=== PATIENT | male | born 1940 | race Caucasian/White ===

== ENCOUNTER 2020-06-28 17:46 | Inpatient (IN) | payer MEDICARE ==
[2020-06-28] MEDS ORDERED: PROTONIX20 MG (18:02)
[2020-06-28] MEDS ORDERED: ZOLOFT25 MG (18:02)
[2020-06-28] MEDS ORDERED: TRIAMTERENE-HC1 EAC3 (18:03)
[2020-06-28] MEDS ORDERED: SYNTHROID112 MCG (18:03)
[2020-06-28] MEDS ORDERED: METOPROLOL TART25 MG (18:03)
[2020-06-28] MEDS ORDERED: PACERONE200 MG (18:03)
[2020-06-28] MEDS ORDERED: CILOSTAZOL100 MG (18:04)
[2020-06-28] MEDS ORDERED: OXYBUTYNIN CHLOR5 MG (18:04)
[2020-06-28] MEDS ORDERED: FLOMAX0.4 MG (18:04)
[2020-06-28] MEDS ORDERED: PRAVACHOL40 MG (18:04)
[2020-06-28] MEDS ORDERED: FLUTICASONE PRO16 GM (18:05)
[2020-06-28 18:48] LABS: HEMATOCRIT 52.3 % (42.0-54.0); HEMOGLOBIN 17.5 g/dL (13.5-17.5); LYMPHOCYTES 21.5 % (15-50); MCH 29.9 pg (26.0-34.0); MCHC 33.5 g/dL (31.0-37.0); MCV 89.4 fL (80.0-100.0); MEAN PLATELET VOLUME 9.4 fL (7.4-10.4); NEUTROPHILS 67.6 % (40-80); PLATELET COUNT 221 10x3/uL (130-400); RBC 5.85 10x6/uL (4.20-6.10); RDW 14.7 % (11.5-14.5); WBC 11.4 10x3/uL (4.8-10.8)
[2020-06-28 18:55] LABS: BILIRUBIN NEGATIVE (NEGATIVE); KETONE NEGATIVE (NEGATIVE); NITRITE NEGATIVE (NEGATIVE); UROBILINOGEN NORMAL (NORMAL)
[2020-06-28 18:56] LABS: BACTERIA FEW /hpf (NONE SEEN); WHITE CELLS - URINE 0-5 /hpf (0-5)
[2020-06-28 19:05] LABS: CALCIUM 9.1 mg/dL (8.5-10.1); CARBON DIOXIDE 27.6 mmol/L (21.0-32.0); CREATININE - SERUM 1.2 mg/dL (0.6-1.3); POTASSIUM - SERUM 3.6 mmol/L (3.5-5.1)
[2020-06-28 19:07] LABS: UDS - AMPHET NEGATIVE QUAL (NEGATIVE); UDS - BARB NEGATIVE QUAL (NEGATIVE); UDS - BENZO NEGATIVE QUAL (NEGATIVE); UDS - COCAINE NEGATIVE QUAL (NEGATIVE); UDS - OPIATE POSITIVE QUAL (NEGATIVE); UDS - PCP NEGATIVE QUAL (NEGATIVE); UDS - THC NEGATIVE QUAL (NEGATIVE)
[2020-06-28 19:19] LABS: ACETAMINOPHEN 0.4 ug/mL (10.0-30.0); ALBUMIN 4.2 g/dL (3.4-5.0); BILIRUBIN - TOTAL 1.14 mg/dL (0.2-1.3); MAGNESIUM - SERUM 2.3 mg/dL (1.8-2.4); THYROID STIMULATING HORMONE 4.19 uIU/mL (0.36-3.74)
[2020-06-28 20:04] VITALS: BP 137/68
--- NOTE | 2020-06-28 21:40 | NUR ---
PT ADMIT TO UNIT WITH DAUGHTER AND ER STAFF. HE RELATES THAT HE IS ANXIOUS ABOUT HIS SITUATION. HE STATES THAT HE KNOWS ITS WRONG TO HAVE THESE THOUGHTS OF SELF HARM AND WANTS TO GET HELP. HE IS REPORTED TO BE A&OX4, AMBULATES WITH A CANE BUT KNOWS HE WILL GET A WALKER. HE IS A FULL CODE. VERBALLY CONSENTED TO TREATMENT HERE HE IS HIS OWN POA. HE REPORTS THAT HE SPENT SOME TIME IN A ANOTHER HOSPITAL FROM FALLING AND HITTING HIS HEAD. ALL SCANS CAME BACK CLEAR. ER REPORTS THAT HIS URINE SHOWS A UTI AND ADMINISTERED MACROBID. SOME ITEMS SENT HOME WITH DAUGHTER. PT IS ANXIOUS. ADMINISTERED IM ATIVAN 0.5MG. WILL CONTINUE TO MONITOR.
[2020-06-28] MEDS ORDERED: ZOFRAN ODT4 MG/UDTAB PO (22:09)
[2020-06-28] MEDS ORDERED: OXYBUTYNIN CHLOR5 MG PO (22:10)
[2020-06-28] MEDS ORDERED: FLOMAX0.4 MG PO (22:12)
[2020-06-28] MEDS ORDERED: ZOLOFT25 MG PO (22:12)
[2020-06-28] MEDS ORDERED: PRAVACHOL20 MG PO (22:13)
[2020-06-28] MEDS ORDERED: PROTONIX40 MG PO (22:13)
[2020-06-28] MEDS ORDERED: CILOSTAZOL100 MG PO (22:14)
[2020-06-28] MEDS ORDERED: LOPRESSOR25 MG PO (22:14)
[2020-06-28] MEDS ORDERED: PACERONE200 MG PO (22:16)
[2020-06-28] MEDS ORDERED: SYNTHROID112 MCG PO (22:16)
[2020-06-28] MEDS ORDERED: TRIAMTERENE-HC1 EAC3 PO (22:17)
--- NOTE | 2020-06-28 22:38 | NUR ---
PT RESTING CALMLY IN BED WITH EYES CLOSED. NO DISTRESS NOTED. WILL CONTINUE TO MONITOR.
--- NOTE | 2020-06-29 00:01 | NUR ---
COVID-19 TEST PERFORMED. SENT TO LAB. INFORMED PT THAT HE IS TO REMAIN IN HIS ROOM ON DROPLET PRECAUTIONS UNTIL TEST RESULTS COME BACK NEGATIVE. PT VERBALIZED UNDERSTANDING. WILL CONTINUE TO MONITOR.
[2020-06-29 00:06] VITALS: BP 137/70; BMI 36.3
[2020-06-29 08:21] LABS: CHOL - HDL RATIO 3.5 ratio (2.3-4.9); LDL-HDL RATIO 1.9 ratio (1.5-3.5)
[2020-06-29 08:28] VITALS: Wt 111.9 kg
--- NOTE | 2020-06-29 08:54 | NUR ---
PT C/O OF H/A. PT FACE IS RED. VITAL SIGNS TAKEN WITH A B/P: 198/97. NOTIFIED DR. PIMENTEL OF PT'S CURRENT MEDS TO BE REVIEWED AND STARTED. NEW ORDER: START METOPROLOL 25 MG AND AMIODARON 200 MG NOW AND ADMINISTER TO PT. WILL CONT TO MONITOR.
[2020-06-29 09:39] VITALS: BP 198/97
--- NOTE | 2020-06-29 09:45 | NUR ---
NURSE RETOOK BLOOD PRESSURE AT THIS TIME AFTER ADMINISTION OF BLOOD PRESSURE MEDS. B/P: 143/69. WILL CONT TO MONITOR.
--- NOTE | 2020-06-29 11:46 | NUR ---
PT C/O OF HEADACHE.NURSE ADMINISTERED TYLENOL 650 MG ONE TIME DOSE PER DOCTORS ORDER. WILL REASSESS.
--- NOTE | 2020-06-29 12:45 | NUR ---
FAMILY MEMBER CALLED TO CHECK ON PT AT THIS TIME. PASSCODE GIVEN. NURSE GAVE AN UPDATE ON AWAITING PTS COVID RESULTS. SO PT IS IN HIS ROOM AT THIS TIME. SHE INQUIRED ABOUT "HOW HE WAS DOING OVER WELL. WAS HE DEPRESSED WITH BEING THERE?" NURSE STATED WELL HE HAS ONLY BEEN IN HIS ROOM SO UNTIL WE RECEIVE THE RESULTS AND THEN WE CAN DETERMINE IF HE IS DEPRESSED OUT OF HIS ROOM. HE IS RESTING DUE TO HAVING A HEADACHE. SHE STATED THAT HAS BEEN DOING ON FOR A WHILE. NURSE STATED THE DOCTOR WOULD BE NOTIFIED. SHE THANKED NURSE.
--- NOTE | 2020-06-29 15:10 | NUR ---
The patient is very anxious, he is red in the face and he says he is hot, Cherelle called and asked about him. She says she will try to call at phone call times. Offered him an ativan for anxiety and he said "Yes, I am just beside myself in here." He is in his room alone, awaiting the COVID test result. Ativan 0.5 mg po provided. Monitor his mood and behavior.
--- NOTE | 2020-06-29 15:40 | NUR ---
The patient says he is feeling less anxious.
--- NOTE | 2020-06-29 16:30 | NUR ---
The patient is in the day room now. His Covid test is negative. He is pleasant, but he is anxious. Dr. Villa explained to him that he will prescribe something for his nerves.
--- NOTE | 2020-06-29 18:10 | NUR ---
The patient drank his milk and ate his dessert then he got a phone call and now he is sitting in the dining room by the window. Explained to him that if he feels anxious he can request something to help him. He verbalized understanding.
[2020-06-29 20:07] VITALS: BP 129/65
--- NOTE | 2020-06-30 00:51 | NUR ---
B) Patientis alert and oriented to person, place and time and why he is here, anxious at times, I) Administered scheduled medications as ordered, monitored for safety R) Mediation compliant, bothered at times by loud confused patients at times, P) Continue plan of care.
[2020-06-30 07:14] LABS: RAPID PLASMA REAGIN Non Reactive (Non Reactive)
[2020-06-30 09:00] VITALS: BP 147/81
--- NOTE | 2020-06-30 10:56 | NUR ---
The patient is pleasant and he c/o a h/a, but his daughter told Pavan Deluca RN that it is something that has been going on for awhile. He received Tylenol this am. He ambulates, he said he needed his belt, but staff explained to him that he is not able to have a belt on this unit, but if he needs to wear his jeans he can have a zip tie. The patient verbalized understanding, but chose to wear shorts today. Provide prescribed meds, educate on the new medication Klonopin. The patient verbalized understanding. The patient is compliant with meds. Continue POC.
[2020-06-30 20:00] VITALS: BP 100/47
--- NOTE | 2020-06-30 20:20 | NUR ---
B) RECEIVED IN DAYROOM SITTING ING WHEELCHAIR SOCIALIZING WITH PEERS. ALERT AND ORIENTED TO TIME, PLACE AND SITUATION. DENIES SI OR ANY SELF-HARM. I) ADMINISTER SCHEDULED MEDICATIONS. CALM AND COOPERATIVE WITH CARE AND ASSESSMENT. REDIRECT AND REORIENT NEEDED. R) COMPLIANT WITH MEDICATIONS. REDIRECTS EASILY. P) WILL CONTINUE TO MONITOR.
[2020-07-01 09:18] VITALS: BP 156/79
--- NOTE | 2020-07-01 12:33 | NUR ---
PT SITTING IN CHAIR AGAINST WALL. PT IS PLESANT WITH STAFF AND PEERS. PT IS ALERT TO PERSON, PLACE AND TIME. SOME CONFUSION NOTED. PT CAN MAKE NEEDS KNOWN. DENIES SI. PT C/O OF H/A EARLIER IN SHIFT. MEDICATION GIVEN. PT CAN TRANSFER AND AMBULATE. PREFERS TO SIT IN W/C. PT IS MED COMPLIANT, VITALS AND ASSESSMENT. WILL CONT PLAN OF CARE.
--- NOTE | 2020-07-01 16:23 | NUR ---
PT DAUGHTER BROUGHT CLOTHES. WILL INVENTORY AND WASH. DAUGHTER INQUIRED ABOUT HOW HE WAS DOING. NURSE WENT OVER PTS MEDS INCLUDING ANTIBIOTIC AND KLONOPIN. SHE WANTED TO KNOW ABOUT HOW LONG HE WOULD BE HERE. NURSE STATED A USUAL STAY IS 7 TO 14 DAYS. HE IS FAIRLY NEW SO I WOULD CHECK BACK NEXT FRIDAY AFTER THE DOCTOR AND STAFF HAS TEAM MEET AND SEE IF A TENTIVE DISCHARGE DATE WAS DISCUSSED. DAUGHTER WANTED TO KNOW WHEN SOMEONE WOULD REACH OUT TO HER. NURSE STATED THAT MEAT GRADER REACHED OUT TO FAMILY AND SHE WAS WELCOME TO CALL TO CHECK ON PT." SHE ASKED IF PT HAD A HEADACHE THIS SHIFT. NURSE STATED HE DID C/O THIS A.M. THAT HE A HEADACHE AND THAT HE REC'D TYLENOL. DAUGHTER STATED SOMEONE TOLD HER HE DID NOT HAVE A HEADACHE THIS A.M. NURSE STATED IT WAS AFTER SHE SPOKE WITH A STAFF MEMBER. NURSE ASKED AT THIS TIME IF HE HAD A H/A HE STATED "A SLIGHT ONE." NURSE OFFERED SOMETHING FOR H/A AND HE ACCEPTED. DAUGHTER STATED HE HAD NO HAD A BOWEL MOVEMENT SINCE HE HAS BEEN HERE. BUT HE IS ON SOMETHING NOW. THE LAST TIME THAT HAPPENED HE HAD TO GET A BOMB. NURSE STATED SHE WOULD MAKE PHYSICIAN AWARE THAT HE HAD NOT HAD A BOWEL MOVEMENT. NURSE STATED THAT PHYSICIAN WAS AWARE HE WAS HAVING HEADACHES AND WANTED TO GIVE THE ANTIBIOTICS TIME TO WORK WELL. HE HAS ONLY HAS BEEN ON IT FOR A DAY OR SO. SHE VERBALIZED UNDERSTANDING.
[2020-07-01 21:28] VITALS: BP 110/55
[2020-07-02 08:53] VITALS: BP 133/78
--- NOTE | 2020-07-02 12:00 | NUR ---
RECEIVED IN HALLWAY OUTSIDE OF NURSES STATION. CALM AND COOPERATIVE WITH CARE AND ASSESSMENT. PLEASANT. DENIES SUICIDAL IDEATION. REDIRECT AND REORIENT NEEDED. EATING AT THIS TIME. CONTINUE PLAN OF CARE.
[2020-07-02 20:03] VITALS: BP 127/76
--- NOTE | 2020-07-02 21:08 | NUR ---
RECEIVED IN DAYROOM. SITTING IN A CHAIR WITH PEERS AT HIS SIDE. CALM AND COOPERATIVE WITH CARE AND ASSESSMENT. NO STATEMENTS OF SELF HARM VOICED AT THIS TIME. ENCOURAGE TO EXPRESS NEEDS. CONTINUES TO SIT CALMLY IN DAYROOM. CONTINUE PLAN OF CARE.
--- NOTE | 2020-07-03 08:41 | NUR ---
PT IN DINING ROOM EATING BREAKFASTWITH PEERS. CALM AND COOPERATIVE WITH ASSESSMENT AT THIS TIME. AWAKE AND ALERT X 3. DENIES SI. PRESCRIBED MEDS PROVIDED ORDERED. MED COMPLIANT. WILL CPOC.
[2020-07-03 08:49] VITALS: BP 137/68
--- NOTE | 2020-07-03 09:13 | PSY ---
PATIENT NAME:NHI VERA MEDICAL RECORD: [id number] : 44 LOCATION:[facility] ADMISSION DATE: 06/28/20 ACCOUNT: [id number] PSYCHIATRIC EVALUATION DATE OF EVALUATION: 06/29/20 IDENTIFYING DATA: The patient is 79 years old and he is admitted to the hospital on a voluntary basis. CHIEF COMPLAINT: Depression. HISTORY OF PRESENT ILLNESS: The patient apparently made some suicidal statements. He is backing away from this now saying that he has had some thoughts about wanting to , but that he would never actually act on those. He endorses numerous neurovegetative depressive symptoms and relates it mostly to just being alone, unhappy and isolated. He has been from his for a long time and again is alone and his daughter lives here in [place], but he does not see her very often. PAST MEDICAL HISTORY: Significant for hypothyroidism, hypertension, cardiac arrhythmia, hypercholesterolemia, and benign prostatic hypertrophy. PAST PSYCHIATRIC HISTORY: None by his account. He has never seen a psychiatrist, never thought about hurting himself and has no history of drug or alcohol abuse. FAMILY HISTORY: Significant for coronary artery disease. ALLERGIES: No known drug allergies. CURRENT MEDICATIONS: Include Lopressor, Flomax, Zofran, Ditropan, Pravachol, Zoloft, Protonix, Synthroid, Cardia, amiodarone and hydrochlorothiazide. SOCIAL HISTORY: The patient is . He has an adult daughter. He has no history of drug or alcohol abuse. 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 MENTAL STATUS EXAMINATION: The patient is awake, alert and oriented to person, place, as well as time and somewhat to situation. His mood is anxious. His affect is constricted. Thought processes are circumstantial. Memory, concentration, and abstraction abilities are mildly impaired and he denies that he would seek to harm himself or others as well as active psychotic symptoms. 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 AXIS II: None. AXIS III: Hypertension, hypothyroidism, cardiac arrhythmia, benign prostatic hypertrophy and hyperlipidemia. AXIS IV: Moderate stressors. AXIS V: Global assessment of functioning is 45. PLAN: At this time, the patient is admitted to the hospital for comprehensive medical, psychological, and social evaluation. He will be treated with both mood stabilizing and memory enhancing medications as deemed appropriate. His long-term prognosis is guarded. TRANSINT:[id number] Voice Confirmation ID: [id number] DOCUMENT ID: [id number] BERNADINE ALLEN MD at 0913 CC: [id number] DICTATION DATE: 06/29/20 1636 MATCHER: 06/29/20 1652 ADM IN [place] [id number] [place] [address]
--- NOTE | 2020-07-03 11:24 | NUR ---
PATIENT'S SISTER, LIS, CALLED TO CHECK ON HIM AND DISCUSS DISCHARGE PLANNING. THE PLAN IS TO TAKE HIM BACK TO HIS HOUSE WITH HIS BROTHER THERE WITH HIM DURING THE DAY AND LIS'S (PT'S BROTHER [place]) THERE WITH HIM AT NIGHT. LIS WOULD LIKE FOR HIM TO BE DISCHARGED EITHER FRIDAY OR FRIDAY.
--- NOTE | 2020-07-03 19:41 | NUR ---
RECEIVED IN DAYROOM. SITTING IN A CHAIR WITH PEERS AT HIS SIDE. CALM AND COOPERATIVE WITH CARE AND ASSESSMENT. NO STATEMENTS OF SELF HARM VOICED THIS EVENING. ENCOURAGE TO EXPRESS NEEDS. CONTINUES TO SIT CALMLY IN DAYROOM. CONTINUE PLAN OF CARE.
[2020-07-03 20:28] VITALS: BP 119/59
[2020-07-04 09:17] VITALS: BP 124/66
[2020-07-04] MEDS ORDERED: MACROBID100 MG PO (10:17)
[2020-07-04] MEDS ORDERED: Senokot-S Tablet PO (10:17)
[2020-07-04] MEDS ORDERED: VITAMIN D PO (10:17)
[2020-07-04] MEDS ORDERED: ZOLOFT50 MG PO (10:17)
[2020-07-04] MEDS ORDERED: KLONOPIN0.5 MG PO (10:17)
--- NOTE | 2020-07-04 12:00 | NUR ---
RECEIVED IN HALLWAY OUTSIDE OF NURSES STATION. SITTING QUIETLY IN WHEELCHAIR. CALM AND COOPERATIVE WITH CARE AND ASSESSMENT. DENIES SUICIDAL IDEATION. REDIRECT AND REORIENT NEEDED. EATING AT THIS TIME. CONTINUE PLAN OF CARE.
--- NOTE | 2020-07-04 14:00 | NUR ---
PATIENT DISCHARGED TO HOME WITH DAUGHTER. DISCHARGE INFORMATION AND MEDICATIONS REVIEWED WITH PATIENT AND DAUGHTER. PAPERWORK FAXED TO [facility]YS[facility] AND HARD COPY SENT WITH PATIENT. PERSONAL BELONGING SENT HOME WITH PATIENT. MEDICATIONS CALLED IN TO [facility] IN [place].
== END 2020-07-04 14:00 | disposition home or self-care (01) | DRG 885 ==
LOC: D.ER 17:46 → D.PSYCH 19:45
PROVIDERS: Family Medicine; ADMIT Psychiatry & Neurology Psychiatry; ATTEND Psychiatry & Neurology Psychiatry
DX: F32.2 Major depressive disorder, single episode, severe without psychotic features (principal); R45.851 Suicidal ideations; N39.0 Urinary tract infection, site not specified; I10 Essential (primary) hypertension; E03.9 Hypothyroidism, unspecified; E78.5 Hyperlipidemia, unspecified; N40.0 Benign prostatic hyperplasia without lower urinary tract symptoms; F41.9 Anxiety disorder, unspecified; I25.10 Atherosclerotic heart disease of native coronary artery without angina pectoris; I48.0 Paroxysmal atrial fibrillation; R51 Headache; G89.29 Other chronic pain; E66.9 Obesity, unspecified; Z68.30 Body mass index [BMI] 30.0-30.9, adult; K21.9 Gastro-esophageal reflux disease without esophagitis; K59.00 Constipation, unspecified